=== PATIENT | male | born 1980 | race Two or more races ===

== ENCOUNTER → 2025-01-06 | Outpatient (CLI) | payer MEDICAID, SELFPAY ==
--- NOTE | 2025-01-06 | XR_ITS ---
Examination: PA lateral chest 2 views TECHNIQUE: Upright PA lateral chest 2 views Exam date and time: January 06, 2025 1250 hours INDICATIONS: Coughing beginning 3 days ago. FINDINGS: Normal heart size. Lungs are clear. The osseous structures are intact IMPRESSION: No active disease
== END | disposition home or self-care (01) ==
PROVIDERS: PCP Nurse Practitioner Family; Referring Provider Nurse Practitioner Family; Visit Provider Nurse Practitioner Family
DX: R05.9 Cough, unspecified (principal); F17.210 Nicotine dependence, cigarettes, uncomplicated
CPT/HCPCS: 71046